=== PATIENT | male | born 1955 | race Caucasian/White ===

== ENCOUNTER → 2017-10-26 | Outpatient (CLI) | payer OTHER ==
[~2017-10-26] MED LIST: MULT-506 PO; NAPR-1231 PO; POLY150C12 PO; PRLSR20 PO
[2017-10-26 09:42] LABS: BASO % 0.4 %; BASO ABS # 0.02 K/uL (0-0.2); EOS % 4.3 %; EOS ABS # 0.22 K/uL (0-0.5); HEMATOCRIT 44.3 % (42-52); HEMOGLOBIN 14.8 g/dL (14.0-18.0); IG# 0.01 K/uL (0.00-0.02); LYMPH % 22.6 %; LYMPH ABS # 1.15 K/uL (1.2-3.4); MEAN CELL VOLUME 87.9 fL (80-100); MEAN CORPUSCULAR HEMOGLOBIN 29.4 pg (25-34); MEAN CORPUSCULAR HGB CONC 33.4 g/dl (32-36); MEAN PLATELET VOLUME 11.3 fL (7.4-10.4); MONO % 8.4 %; MONO ABS # 0.43 K/uL (0.11-0.59); NEUT % 64.1 %; NEUT ABS # 3.26 K/uL (1.4-6.5); PLATELET COUNT 213 K/uL (130-400); RED CELL DISTRIBUTION WIDTH CV 13.7 % (11.5-14.5); RED CELL DISTRIBUTION WIDTH SD 43.9 fL (36.4-46.3); WHITE BLOOD COUNT 5.09 K/uL (4.8-10.8)
[2017-10-26 10:01] LABS: ALT/SGPT 23 U/L (12-78); AST/SGOT 14 U/L (15-37); BLOOD UREA NITROGEN 15 mg/dl (7-18); CARBON DIOXIDE 27 mmol/L (21-32); CHOLESTEROL 142 mg/dl (0-200); GLUCOSE 93 mg/dl (70-99); POTASSIUM 3.8 mmol/L (3.5-5.1); SODIUM 138 mmol/L (136-145)
[2017-10-26 10:05] LABS: LDL CHOLESTEROL CALCULATED 72 mg/dl
== END | disposition home or self-care (01) ==
LOC: C.LAB1850 07:33
DX: M19.90 Unspecified osteoarthritis, unspecified site (principal); E78.5 Hyperlipidemia, unspecified; I10 Essential (primary) hypertension; N40.0 Benign prostatic hyperplasia without lower urinary tract symptoms

== ENCOUNTER → 2018-03-05 | Outpatient (CLI) | payer OTHER ==
--- NOTE | 2018-03-05 10:57 | DIAGNOSTIC IMAGING REPORT ---
RENAL ULTRASOUND HISTORY: N40.1 Benign prostatic hyperplasia with urinary [id number] COMPARISON: None. FINDINGS: Right kidney: 15.7 cm. The increase in size is primarily due to the multiple large cysts. The upper pole cysts demonstrate internal echoes. Dominant cyst measures 7 cm. No hydronephrosis. Left kidney: 11.4 cm. No hydronephrosis. Normal corticomedullary differentiation and cortical thickness. There appears be a small peripelvic cyst. Bladder: Bilateral ureteral jets are identified. Enlarged prostate measuring 5 cm. Nodular echogenic focus within the left posterior bladder wall measuring 9 mm. IMPRESSION: 1. Multiple large cysts within the right kidney. The upper pole cysts demonstrate internal echoes. Follow-up renal CT or renal MRI is recommended to exclude a soft tissue component. 2. A 9 mm nodule within the left posterior bladder wall. Recommend follow cystoscopy to exclude a urothelial lesion. Electronically signed by: Rajiv Lawrence M.D. 03/05/2018 10:56 AM Dictated Date/Time: 03/05/2018 10:51 AM
== END | disposition home or self-care (01) ==
LOC: C.ULTR 10:13
PROVIDERS: ATTEND Urology
DX: N40.1 Benign prostatic hyperplasia with lower urinary tract symptoms (principal); R30.0 Dysuria; N28.1 Cyst of kidney, acquired; N32.9 Bladder disorder, unspecified

== ENCOUNTER → 2018-04-02 | Outpatient (CLI) | payer MEDICARE, OTHER ==
[~2018-04-02] MED LIST changes: +FERR1TAB61 PO; +FLUT0.15 NAE; +METO25TA56 PO; -NAPR-1231 PO; +NAPR-22 PO; +OMEG10007 PO; -POLY150C12 PO; +SUMA25TA12 PO; +TRMCR515 TOP
--- NOTE | 2018-04-02 10:03 | DIAGNOSTIC IMAGING REPORT ---
CHEST 2 VIEWS ROUTINE CLINICAL HISTORY: Preoperative chest COMPARISON STUDY: No previous studies for comparison. FINDINGS: The heart is normal in size. There is mild aortic tortuosity. There is no failure. There is no focal pulmonary consolidation. There are no pleural effusions. There are bilateral shoulder arthroplasties.[ IMPRESSION: No active disease in the chest. Electronically signed by: Lisandro Mendoza M.D. 04/02/2018 10:02 AM Dictated Date/Time: 04/02/2018 10:01 AM
[2018-04-02 11:14] LABS: BASO % 0.4 %; BASO ABS # 0.02 K/uL (0-0.2); EOS % 5.3 %; EOS ABS # 0.24 K/uL (0-0.5); HEMATOCRIT 46.3 % (42-52); HEMOGLOBIN 15.2 g/dL (14.0-18.0); IG# 0.01 K/uL (0.00-0.02); LYMPH % 24.1 %; MEAN CELL VOLUME 88.7 fL (80-100); MEAN CORPUSCULAR HEMOGLOBIN 29.1 pg (25-34); MEAN CORPUSCULAR HGB CONC 32.8 g/dl (32-36); MEAN PLATELET VOLUME 11.2 fL (7.4-10.4); MONO % 7.7 %; MONO ABS # 0.35 K/uL (0.11-0.59); NEUT % 62.3 %; NEUT ABS # 2.85 K/uL (1.4-6.5); PLATELET COUNT 194 K/uL (130-400); RED CELL DISTRIBUTION WIDTH CV 13.5 % (11.5-14.5); RED CELL DISTRIBUTION WIDTH SD 44.3 fL (36.4-46.3); WHITE BLOOD COUNT 4.57 K/uL (4.8-10.8)
[2018-04-02 11:26] LABS: BLOOD UREA NITROGEN 18 mg/dl (7-18); CALCIUM 9.3 mg/dl (8.5-10.1); CARBON DIOXIDE 28 mmol/L (21-32); CREATININE 0.94 mg/dl (0.60-1.40); GLUCOSE 102 mg/dl (70-99); POTASSIUM 5.5 mmol/L (3.5-5.1); SODIUM 140 mmol/L (136-145)
== END | disposition home or self-care (01) ==
LOC: C.CPL 08:49
PROVIDERS: ATTEND Urology
DX: N32.9 Bladder disorder, unspecified (principal); Z01.812 Encounter for preprocedural laboratory examination; Z01.810 Encounter for preprocedural cardiovascular examination

== ENCOUNTER → 2018-04-02 | Outpatient (CLI) | payer OTHER ==
[~2018-04-02] MED LIST changes: +OPTIRAY 320 IV PRN
--- NOTE | 2018-04-02 08:51 | DIAGNOSTIC IMAGING REPORT ---
ABD/PELVIS COMBO CLINICAL HISTORY: 62 years-old Male presenting with N32.9 Lesion of bladder, renal cyst. TECHNIQUE: Multidetector CT of the abdomen and pelvis was performed before and after the administration of intravenous contrast. IV contrast: 117 mL of Optiray 320. A dose lowering technique was used consistent with the principles of ALARA (as low as reasonably achievable). COMPARISON: Ultrasound from 03/05/2018. CT DOSE (mGy.cm): The estimated cumulative dose is 562.24 mGy.cm. FINDINGS: Yeast Pumper topogram: Vasectomy clips noted. Lung bases: Minimal basilar opacities, likely atelectasis. Bilateral fat-containing Bochdalek hernias. Normal heart size. No pericardial or pleural effusion. Liver: Normal morphology. Normal liver density. Well-defined hypodensity in the right hepatic lobe likely hepatic cyst. . Additional similar lesion may be present in the gallbladder fossa. Patent hepatic vasculature. Biliary: No intrahepatic or extrahepatic biliary ductal dilatation. Normal gallbladder. Pancreas: Normal. Spleen: Normal. Adrenal glands: Normal. Kidneys and ureters: Multiple confluent cysts noted in the right kidney. There is residual normal parenchyma anteriorly and posteriorly in the interpolar region though the majority of the remaining renal parenchyma is replaced by the multicystic lesion. Several thin septations are noted with perceptible enhancement. Thin mural calcifications also evident. No solid nodular enhancing components. The multicystic, confluent right renal abnormality appears unencapsulated. The left kidney contains no cysts. No hydronephrosis. No nephrolithiasis. Ureters normal. Bladder: Circumferential bladder wall thickening. Median lobe hypertrophy of the prostate. Allowing for incomplete distention of the bladder and incomplete mixing of excreted contrast, no polypoid lesion is grossly apparent. Pelvic organs: Prostate enlargement likely secondary to benign prostatic hyperplasia. Bowel: Normal appendix. No bowel obstruction. Peritoneal cavity: No free fluid or intraperitoneal gas. Lymph nodes: No enlarged lymph nodes in the abdomen or pelvis. Vasculature: Aorta and IVC patent and normal in caliber. Abdominal wall: Small fat-containing umbilical hernia. Musculoskeletal: Degenerative changes of the spine. IMPRESSION: 1. Findings most suggestive of localized renal cystic disease, which is benign. Less likely differential considerations include a multilocular cystic renal tumor, however, multilocular cystic renal tumors are indistinguishable from multilocular clear cell renal cell carcinoma. Urologic consultation advised. Imaging follow-up is recommended at a minimum. 2. Circumferential bladder wall thickening suggest chronic bladder outlet obstruction in the setting of prostatomegaly. Electronically signed by: Vishnu Carballo M.D. 04/02/2018 8:50 AM Dictated Date/Time: 04/02/2018 8:35 AM
[2018-04-02 09:50] LABS: ALBUMIN 3.7 gm/dl (3.4-5.0); ALKALINE PHOSPHATASE 60 U/L (45-117); ALT/SGPT 26 U/L (12-78); AST/SGOT 18 U/L (15-37); BLOOD UREA NITROGEN 18 mg/dl (7-18); CALCIUM 8.7 mg/dl (8.5-10.1); CARBON DIOXIDE 27 mmol/L (21-32); CREATININE 0.94 mg/dl (0.60-1.40); GLUCOSE 96 mg/dl (70-99); POTASSIUM 4.1 mmol/L (3.5-5.1); SODIUM 139 mmol/L (136-145)
== END | disposition home or self-care (01) ==
LOC: C.CTS 08:04
PROVIDERS: ATTEND Urology
DX: N32.9 Bladder disorder, unspecified (principal)

== ENCOUNTER 2022-06-30 05:17 | Observation (INO) ==
--- NOTE | 2022-05-31 07:25 | Anesthesiology Consultation ---
Date of Service May 31, 2022 Assessment & Plan Chart Review Chart Review: Acceptable Risk for Surgery and Patient NOT seen in Pre Admission Testing History Surgery Operation Date: 06/30/22 08:50 Proposed Procedures p Left Total Knee Arthroplasty - Mnado Schumacher MD Allergies Allergy/AdvReac Type Severity Reaction Status Date / Time diclofenac Allergy Mild Rash Verified 05/30/22 13:18 morphine Allergy Mild DYSURIA Verified 05/30/22 13:18 ciprofloxacin [From Cipro] AdvReac Intermediate Joint Pain Verified 05/30/22 13:18 Medications Home Medications Medication Instructions Recorded Confirmed Last Taken multivitamin with minerals 0.5 tab PO BID ##0 03/14/12 05/30/22 07/07/18 08:00 (Multiple Vitamin-Minerals tablet) omeprazole 20 mg tablet,delayed 20 mg PO QAM PRN Acid Reflux ##0 03/14/12 05/30/22 07/08/18 07:00 release fluticasone propionate 50 2 spray intranasal DAILY PRN Nasal 03/26/18 05/30/22 06/24/18 10:00 mcg/actuation nasal Congestion ##0 spray,suspension (Flonase Allergy Relief) metoprolol tartrate 25 mg tablet 25 mg PO BID #0 tabs 03/26/18 05/30/22 07/08/18 07:00 naproxen 500 mg tablet 500 mg PO BID PRN Pain #0 tabs 03/26/18 05/30/22 07/01/18 08:00 500 mg sumatriptan succinate 25 mg tablet 100 mg PO UD PRN MIGRAINE #0 tabs 03/26/18 05/30/22 Unknown (Imitrex) triamcinolone acetonide 0.1 % 1 applic topical BID PRN Rash 30 03/26/18 05/30/22 1 Week Ago topical cream days #15 grams ~04/09/18 cholecalciferol (vitamin D3) 25 25 mcg PO QAM 05/30/22 05/30/22 Unknown mcg (1,000 unit) tablet (Vitamin D3) finasteride 5 mg tablet 5 mg PO HS 05/30/22 05/30/22 Unknown tamsulosin 0.4 mg capsule 0.4 mg PO QPM 05/30/22 05/30/22 Unknown Past Medical History Medical History Anemia Bilateral primary osteoarthritis of knee BPH (benign prostatic hyperplasia) Cancer BLADDER GERD (gastroesophageal reflux disease) PT IS ON THIS MEDICATION DUE TO HX OF NSAIDS Hypertension Migraine Osteoarthritis Strain of right calf muscle Past Family History Family History Mother Cardiac disorder Osteoarthritis Father Thyroid cancer Other No family history of adverse response to anesthesia Past Surgical History Surgical History History of colonoscopy History of cystoscopy multiple--last 06/2018 @ [place] History of herniorrhaphy RIGHT INGUINAL History of sinus surgery 03/[address] @ [facility] History of total shoulder replacement BILATERAL Hx of vasectomy Social History Smoking Status: Never smoker Hx Alcohol Use: Yes Alcohol type: beer and wine alcohol intake frequency: a few times a month Hx Substance Use: No substance use type: does not use
--- NOTE | 2022-06-14 09:03 | PAT Medication Instructions ---
Medication Instructions Date of Service June 14, 2022 Home Medications Medication Instructions Recorded oxybutynin chloride 5 mg tablet 5 mg PO Q8H PRN bladder spasms #10 06/05/22 tabs phenazopyridine 200 mg tablet 200 mg PO Q8H PRN pain #10 tabs 06/05/22 (Pyridium) multivitamin with minerals (Multiple Vitamin-Minerals tablet) 0.5 tab PO BID omeprazole 20 mg tablet,delayed release 20 mg PO QAM PRN fluticasone propionate 50 mcg/actuation nasal spray,suspension (Flonase Allergy Relief) 2 spray intranasal DAILY PRN metoprolol tartrate 25 mg tablet 25 mg PO BID naproxen 500 mg tablet 500 mg PO BID PRN sumatriptan succinate 25 mg tablet (Imitrex) 100 mg PO UD PRN triamcinolone acetonide 0.1 % topical cream 1 applic topical BID PRN cholecalciferol (vitamin D3) 25 mcg (1,000 unit) tablet (Vitamin D3) 25 mcg PO QAM finasteride 5 mg tablet 5 mg PO HS tamsulosin 0.4 mg capsule 0.4 mg PO QPM oxybutynin chloride 5 mg tablet 5 mg PO Q8H PRN phenazopyridine 200 mg tablet (Pyridium) 200 mg PO Q8H PRN Continue as directed sumatriptan succinate 25 mg tablet (Imitrex) 100 mg PO UD PRN(if needed) phenazopyridine 200 mg tablet (Pyridium) 200 mg PO Q8H PRN(if needed) ASK your surgeon for instructions naproxen 500 mg tablet 500 mg PO BID PRN STOP taking 24 hours before surgery triamcinolone acetonide 0.1 % topical cream 1 applic topical BID PRN DO NOT take the morning of surgery multivitamin with minerals (Multiple Vitamin-Minerals tablet) 0.5 tab PO BID cholecalciferol (vitamin D3) 25 mcg (1,000 unit) tablet (Vitamin D3) 25 mcg PO QAM oxybutynin chloride 5 mg tablet 5 mg PO Q8H PRN Take morning of surgery With a small sip of water, OTHERWISE NOTHING TO EAT OR DRINK AFTER MIDNIGHT: omeprazole 20 mg tablet,delayed release 20 mg PO QAM PRN(if needed) fluticasone propionate 50 mcg/actuation nasal spray,suspension (Flonase Allergy Relief) 2 spray intranasal DAILY PRN(if needed) metoprolol tartrate 25 mg tablet 25 mg PO BID Take evening before surgery multivitamin with minerals (Multiple Vitamin-Minerals tablet) 0.5 tab PO BID metoprolol tartrate 25 mg tablet 25 mg PO BID finasteride 5 mg tablet 5 mg PO HS tamsulosin 0.4 mg capsule 0.4 mg PO QPM oxybutynin chloride 5 mg tablet 5 mg PO Q8H PRN(if needed) Other Notes If you have any questions please call us at [phone] or [phone] or [phone] or [phone]
--- NOTE | 2022-06-19 13:09 | Anesthesiology Consultation ---
Date of Service June 19, 2022 Assessment & Plan (1) Encounter for pre-operative examination: - COVID screening: Per assessment on 06/19: No known COVID-19 positive contacts or current COVID-19 related symptoms. Travel screen negative. Patient vaccinated. At surgeon discretion if preop Covid testing being done. - Outpatient joint assessment: Pt currently scheduled for inpatient pathway. If surgeon requests review for outpatient joint pathway, patient is acceptable candidate for outpatient joint program from anesthesia standpoint pending surgeon's office assessment of pt motivation/strong home support/completion of same day joint program preop requirements. - S/P REZUM (06/05/22) at [facility] No issues noted per post-op anesthesia progress note. - Chart/case reviewed by Dr. Braden 05/31/22- he deemed patient acceptable risk for upcoming surgery. Chart Review Chart Review: Acceptable Risk for Surgery and Patient seen in Pre Admission Testing Consults Requested none Teaching & Discussion Pre-Anesthesia Teaching/Discussion Notes: Instructed NPO after midnight before surgery,except medications with 15 cc of water. Medication instructions provided according to the PAT guidelines. ASA ASA3 Proposed Anesthesia Anesthesia Type: MAC Spinal Regional Regional Laterality: Left Site: Adductor Canal Risk / Benefits Reviewed With: PT / POA / Parent / Guardian, Accepts Plan and Informed Consent Obtained History Surgery Operation Date: 06/30/22 07:00 Proposed Procedures p Left Total Knee Arthroplasty - Mando Schumacher MD Height/Weight Height: 5 ft 10 in Weight: 74.5 kg Allergies Allergy/AdvReac Type Severity Reaction Status Date / Time diclofenac Allergy Mild Rash Verified 06/30/22 05:35 ciprofloxacin [From Cipro] AdvReac Intermediate Joint Pain Verified 06/30/22 05:35 morphine AdvReac Mild Dysuria Verified 06/30/22 05:35 Medications Home Medications Medication Instructions Recorded Confirmed Last Taken multivitamin with minerals 0.5 tab PO BID ##0 03/14/12 06/30/22 06/29/22 12:00 (Multiple Vitamin-Minerals tablet) omeprazole 20 mg tablet,delayed 20 mg PO QAM PRN Acid Reflux ##0 03/14/12 06/30/22 07/08/18 07:00 release fluticasone propionate 50 2 spray intranasal DAILY PRN Nasal 03/26/18 06/30/22 06/29/22 12:00 mcg/actuation nasal Congestion ##0 spray,suspension (Flonase Allergy Relief) metoprolol tartrate 25 mg tablet 25 mg PO BID #0 tabs 03/26/18 06/30/22 06/30/22 04:20 naproxen 500 mg tablet 500 mg PO BID PRN Pain #0 tabs 03/26/18 06/30/22 05/28/22 sumatriptan succinate 25 mg tablet 100 mg PO UD PRN MIGRAINE #0 tabs 03/26/18 06/30/22 06/24/22 (Imitrex) triamcinolone acetonide 0.1 % 1 applic topical BID PRN Rash 30 03/26/18 06/13/22 1 Week Ago topical cream days #15 grams ~04/09/18 cholecalciferol (vitamin D3) 25 25 mcg PO QAM 05/30/22 06/30/22 06/29/22 09:00 mcg (1,000 unit) tablet (Vitamin D3) finasteride 5 mg tablet 5 mg PO HS 05/30/22 06/30/22 06/29/22 20:00 tamsulosin 0.4 mg capsule 0.4 mg PO QPM 05/30/22 06/30/22 06/29/22 20:00 oxybutynin chloride 5 mg tablet 5 mg PO Q8H PRN bladder spasms #10 06/05/22 06/13/22 Unknown tabs phenazopyridine 200 mg tablet 200 mg PO Q8H PRN pain #10 tabs 06/05/22 06/13/22 Unknown (Pyridium) Wheeled Walker #1 ea 06/19/22 06/19/22 Unknown Active Medications Generic Name Dose Route Start Last Admin Trade Name Gualbertoq PRN Reason Stop Dose Admin Acetaminophen 1,000 mg 06/30/22 06:00 06/30/22 05:50 Acetaminophen 500 Mg Tab PO 06/30/22 18:00 1,000 mg PREOP CRYSTAL Administration Famotidine 20 mg 06/30/22 06:00 06/30/22 05:51 Famotidine 20 Mg Tab PO 06/30/22 18:00 20 mg PREOP CRYSTAL Administration Lactated Ringer's 1,000 mls @ 60 mls/hr 06/30/22 06:00 06/30/22 05:52 Lr IV 06/30/22 22:39 60 mls/hr .[id number] CRYSTAL Administration Metoclopramide HCl 10 mg 06/30/22 06:00 06/30/22 05:51 Metoclopramide Hcl 10 Mg Tablet PO 06/30/22 18:00 10 mg PREOP CRYSTAL Administration Scopolamine 1 mg 06/30/22 06:00 06/30/22 05:51 Scopolamine 1 Mg Tdsy TD 06/30/22 18:00 1 mg PREOP CRYSTAL Administration NPO Date Last Intake of Fluids: 06/30/22 Time Last Intake of Fluids: 05:00 Date Last Intake of Solids: 06/29/22 Time Last Intake of Solids: 19:00 Past Medical History Medical History Anemia Bilateral primary osteoarthritis of knee BPH (benign prostatic hyperplasia) Cancer Bladder (no chemo/xrt) GERD (gastroesophageal reflux disease) Occasional Hypertension Migraine Osteoarthritis Exercise / Class Metabolic Activity II 4-5 Yardwork/Stairs/Walk up hill (one FS (No CP, no SOB)) Past Family History Family History Mother Cardiac disorder Osteoarthritis Father Thyroid cancer Other No family history of adverse response to anesthesia Past Surgical History Surgical History History of colonoscopy History of cystoscopy multiple--last 06/2018 @ [place] History of herniorrhaphy RIGHT INGUINAL History of sinus surgery 03/2022 @ [facility] History of surgery REZU (06/05/22) at [facility]. No issues noted per post-op anesthesia progress note. History of total shoulder replacement BILATERAL Hx of vasectomy Past Anesthesia History No Hx of Anesthesia Complications and Difficult Airway History of PONV No Hx of PONV and No Hx of Motion Sickness Social History Smoking Status: Never smoker Do You Dip or Chew Tobacco: No Hx Alcohol Use: Yes Alcohol type: beer and wine alcohol intake frequency: a few times a month Hx Substance Use: No substance use type: does not use Review of Systems Patient denies chest pain, shortness of breath, dyspnea on exertion, fever, chills, cough, wheezing, palpitations. Physical Exam Vital Signs Last Vital Signs Temp 36.9 C 06/30/22 05:40 Pulse 57 L 06/30/22 05:40 Resp 18 06/30/22 05:40 BP 136/78 06/30/22 05:40 Pulse Ox 99 06/30/22 05:40 O2 Del Method 06/30/22 05:40 VITALS BP 124/73 P 57 TEMP 98.2 SP02 97%RA RESP 18 PHYSICAL Full cervical extension range of motion. Full TMJ range of motion. TMD 3.5 finger breaths Mallampati Score 2 Dentition: intact Lungs: clear throughout to auscultation Cardiac: regular rate and rhythm, no murmurs noted Spine: normal Carotid arteries: negative bruit Extremities: no edema Constitutional no acute distress and not cachectic ENMT Mouth: no dentition abnormality Thyromental Distance: > or= 3.5 Finger Breadths Mallampati Class: II Neck normal visual inspection, trachea midline and + facial hair; neck extension not limited Respiratory normal respiratory effort Auscultation: lungs clear to auscultation bilaterally Cardiovascular Rate/Rhythm: regular rate and regular rhythm Heart Sounds: no murmur Vessels: no carotid bruit Musculoskeletal Spine: normal cervical ROM Extremities: extremities normal to inspection; full ROM of extremities Neurologic moves all extremities Motor/Sensory: no sensory deficit Psychiatric Orientation: alert and oriented x 3 Lab Results Anesthesia Preop Results Results Anesthesia Widget: WBC 4.66 K/ul (4.8-10.8) L 06/19/22 Hgb 14.4 g/dl (14.0-18.0) 06/19/22 Hct 43.2 % (40.1-51.0) 06/19/22 Plt 215 K/uL (130-400) 06/19/22 Na 139 mmol/L (136-145) 05/18/22 K 4.1 mmol/L (3.5-5.1) 05/18/22 Cl 107 mmol/L (98-107) 05/18/22 CO2 26 mmol/L (21-32) 05/18/22 BUN 22 mg/dl (6-23) 05/18/22 Creat 0.90 mg/dl (0.6-1.4) 05/18/22 Glucose Level 91 mg/dl (70-99(Fasting)) 05/18/22 PT 11.0 Seconds (9.0-12.0) 06/19/22 PTT 28.8 Seconds (21.0-31.0) 06/19/22 INR 1.0 (0.9-1.1) 06/19/22 Urine Color Yellow 05/18/22 Urine Appearance Clear (Clear) 05/18/22 Urine pH 6.0 (4.5-7.5) 05/18/22 Urine Specific Frost 1.016 (1.000-1.030) 05/18/22 Urine Protein Negative (Negative) 05/18/22 Urine Glucose (UA) Negative (Negative) 05/18/22 Urine Ketones Negative (Negative) 05/18/22 Urine Blood Negative (Negative) 05/18/22 Urine Nitrite Negative (Negative) 05/18/22 Urine Bilirubin Negative (Negative) 05/18/22 Urine Urobilinogen Negative (Negative) 05/18/22 Urine Leukocyte Esterase Negative (Negative) 05/18/22 SARS-CoV-2, RNA, NAAT NEGATIVE (NEGATIVE) 06/30/22 Blood Type A Positive 06/19/22 Antibody Screen NEGATIVE 06/19/22 Testing Electrocardiogram Date: 05/18/22 SB at 54bpm. Minimal voltage criteria for LVH, may be normal variant. NS STA. 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 Chest X-Ray Date: 05/18/22 FINDINGS: Bilateral shoulder arthroplasties are incidentally noted. Lung volumes are normal. Lungs are clear. There is no pneumothorax or pleural effusion. Cardiac size is normal. Mediastinal contours are normal. There is no evidence for pulmonary edema. IMPRESSION: No acute cardiopulmonary findings. COVID-19 Risk Screen Screening Information COVID-19 Screen Date: 06/19/22 Exposure 21 Days Family/Household +COVID Last 21 Days: No Exposure 10 Days Any COVID Exposure Last 10 Days: No Symptoms Last 10 Days Experienced COVID Sx Last 10 Days: No + COVID 0-90 Days COVID + in Last 0-90 Days: No
[2022-06-30] MEDS ORDERED: FAMOTIDINE 20 MG TAB PO SCH (06:00)
[2022-06-30] MEDS ORDERED: ACETAMINOPHEN 500 MG TAB PO SCH (06:00)
[2022-06-30] MEDS ORDERED: Scopolamine 1 MG TDSY TD SCH (06:00)
[2022-06-30] MEDS ORDERED: LR 60ML/HR IV SCH (06:00)
[2022-06-30] MEDS ORDERED: ceFAZolin 2000MG 2,000 MG/15 ML SYR IV SCH (06:00)
[2022-06-30] MEDS ORDERED: TRANEXAMIC ACID 1,000 MG **IV Intra-op IV SCH (06:00)
[2022-06-30] MEDS ORDERED: METOCLOPRAMIDE HCL 10 MG TABLET PO SCH (06:00)
[2022-06-30] MEDS ORDERED: CeleBREX 200 MG CAP PO SCH (06:00)
[2022-06-30] MEDS ORDERED: EPINEPHrine INJ 1 MG/ML AMP ONE (06:15)
[2022-06-30] MEDS ORDERED: ROPIVACAINE 0.5% 5 MG/ML 30 ML VIAL ONE (06:15)
[2022-06-30] MEDS ORDERED: BUPIVACAINE 0.5 % 5 MG/1 ML PF 10ML VIAL ONE (06:15)
[2022-06-30] MEDS ORDERED: LIDOCAINE 2% MPF LOCAL 5 ML VIAL INFIL ONE (06:45)
[2022-06-30] MEDS ORDERED: MIDAZOLAM HCL 1 MG/ML 2ML VIAL ONE ×2 (06:45→06:53)
[2022-06-30] MEDS ORDERED: CeleBREX 200 MG CAP ONE (06:45)
[2022-06-30] MEDS ORDERED: PROPOFOL IV EMULSION 10 MG/ML 20 ML VIAL IV ONE (06:45)
[2022-06-30] MEDS ORDERED: Nursing to Pharmacy Communication SCH (06:45)
--- NOTE | 2022-06-30 06:55 | History & Physical Bridge Note ---
Date of Service June 30, 2022 History & Physical Bridge Note I have examined the patient, reviewed the History & Physical and in the interval since the performance of the History & Physical I have noted the following changes of clinical significance: no changes noted
[2022-06-30] MEDS ORDERED: ONDANSETRON INJ 2 MG/ML 2 ML VIAL ONE (07:20)
[2022-06-30] MEDS ORDERED: ePHEDrine sulfate 50 MG/ML AMP ONE (07:30)
[2022-06-30] MEDS: BUPIVACAINE LIPOSOME/PF 266 MG, BUPIVACAINE/EPINEPHRINE 50 ML, SODIUM CHLORIDE 0.9% 30 ... INFIL SCH ×2 (07:40→09:18)
[2022-06-30] MEDS: BUPIVACAINE LIPOSOME 1.3% 266 MG/20 ML VIAL ONE ×2 (07:40)
[2022-06-30] MEDS: EPINEPHrine INJ 1 MG/ML AMP ONE ×2 (07:40→07:41)
[2022-06-30] MEDS: SODIUM CHLORIDE 0.9% PF 50 ML VIAL ONE ×2 (07:40→07:41)
[2022-06-30] MEDS: BUPIVACAINE 0.5 % 5 MG/1 ML MPF 30ML VIAL ONE ×2 (07:40)
[2022-06-30] MEDS ORDERED: PROMETHAZINE HCL 12.5 MG in SODIUM CHLORIDE 0.9% 50 ML IV PRN (08:12)
[2022-06-30] MEDS ORDERED: ONDANSETRON INJ 2 MG/ML 2 ML VIAL IV PRN ×2 (08:12→10:38)
[2022-06-30] MEDS ORDERED: FLUMAZENIL 0.1 MG/1 ML 10 ML VIAL IV PRN (08:12)
[2022-06-30] MEDS ORDERED: ATROPINE SULFATE 0.1 MG/ML 10ML SYR IV PRN (08:12)
[2022-06-30] MEDS ORDERED: HYDROmorphone INJ 1 MG/ML SYRINGE IV PRN (08:12)
[2022-06-30] MEDS ORDERED: ePHEDrine sulfate 50 MG/ML AMP IV PRN (08:12)
[2022-06-30] MEDS ORDERED: fentaNYL citrate 100 MCG/2 ML VIAL IV PRN (08:12)
[2022-06-30] MEDS ORDERED: NALOXONE HCL 0.4 MG/1 ML VIAL/CARP IV PRN ×2 (08:12→10:38)
--- NOTE | 2022-06-30 08:52 | Operative Report ---
PG Post Operative Report Pre & Post Diagnosis Operation Date: 06/30/22 07:00 Pre-Op Diagnosis: Left Knee Advanced Degenerative Joint Disease Post-Op Diagnosis: Left Knee Advanced Degenerative Joint Disease I identified the patient and participated in the time-out.: Yes Procedure Operation Date: 06/30/22 07:00 Actual Procedures p Left Total Knee Arthroplasty(Left) - Mando Schumacher MD Surgeon Mando Schumacher MD Mannequin Coloring Artist Jamie Finley PA-C Estimated Blood Loss 50 Findings Consistent with Post-Op Diagnosis Operative findings were advanced left knee tricompartment DJD. Extensive grade 4 [id number]-[id number] disease in all 3 compartments with chronic ACL deficiency. He had osteophytes in all 3 compartments. He had a fixed varus deformity to his knee and about a 10 degree flexion contracture. 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 Is been through extensive conservative treatments became less successful over time. Pain is become more debilitating he elected proceed with total knee arthroplasty. Description of Procedure Operative implants consist of: 1 Biomet Vanguard size 67.5 left posterior stabilized femoral component. 2. Biomet size 79 tibial tray. 3. 10 mm posterior stabilized polyethylene insert. 4. 34 x 8 and half all Paller patella. The patient was taken to the operating room, identified, placed on the operating table supine position protectors were properly padded. IV antibiotics tried by anesthesia team. Spinal anesthetic of the implemented holding area. A left thigh tent was then placed. We did not put a Briseno catheter in due to his a recent urological procedure. Left lower extremities then prepped and draped in usual sterile fashion. The left leg was elevated exsanguinated with use of an Esmarch and the tourniquet was set at 300 mmHg. An anterior approach left knee was then performed through a longitudinal incision centered over the patella. Sharp dissection was got through subcutaneous is down the extensor mechanism. A medial parapatellar arthrotomy incision was made. Some subperiosteal dissection was carried out medially. The fat pad was resected from Neath patella tendon. Lateral patellofemoral ligament was released. Patella subluxated laterally and the knee was flexed. The osteophytes taken off distal femur. The ACL was absent. The PCL was released from distal femur the tibia subluxated anteriorly. The external tibial alignment jig was then placed in the interface the tibia and adjusted 16 mm medially. Proximal tibial cut was made essentially flush with the most deficient aspect of the posterior medial tibial plateau. Some osteophytes taken off medially. Tibia sized to a size 79. Attention drawn the femur. The distal femur during the sharp drop with intramedullary canal was suction. A left 6 degree valgus cutting guide was placed. Distal femoral cutting block was pinned in place but distal femoral cut was made to take an additional 3 mm bone off distal femur. Femur was then sized to a size 67.5. Sized exactly to a 67.5. The AP cutting block was pinned parallel to the epicondylar axis which was 5 degrees of external rotation. Anterior cut, anterior chamfer, posterior cut, posterior chamfer cuts were made. The box cutting guide was placed in just slight lateral and the box cut was made. The knee was flexed. The remnants of the medial and lateral menisci were excised with the osteophyte taken off the posterior aspect the femur. Trial femoral component was placed. Tibial tray was pinned in maximum external rotation and the drill and stem punch were used to create defect in proximal tibia for the tibial tray. Knee was then trialed and 10 mm insert fit most appropriately. Attention drawn the patella. The patella was cleaned of all soft tissues. The patella thickness measured and 23 mm in thickness was cut down to 14. Was sized to a size 34 patella. The lug holes were drilled for 34 patella. The lateral osteophyte was removed. Patella button was placed. Knee was taken through range of motion patella tracked nicely with no thumbs test. Attention drawn to placing permanent components. All trial components were removed. Bone plug was placed into distal femur limit blood loss. Double batch of Palacos G cement was mixed. Biomet Vanguard size 67.5 left posterior stabilized femoral component, size 79 tibial tray, a 10 mm posterior stabilized polyethylene insert, and a 34 x 8 All Paller patella then cemented in place. Knee was brought out into full extension total cement hardened. Final cement check was then performed. The pericapsular tissues were injected with total of 100 cc of combination of 20 cc of Exparel, 30 cc normal saline, 50 cc of quarter percent Marcaine with epinephrine. Patient did receive 1 g tranexamic acid. The tourniquet was let down for final turn time of 57 minutes. Hemostasis reduced electrocautery. Extensor mechanism closed with combination 1 PDS suture #1 Vicryl suture in [id number] fashion. Extensor mechanism checked found be intact the subcutaneous tissue then closed with 2 Dexon suture in a buried interrupted fashion skin was closed skin katherine. Leg was then cleaned and dried a sterile dressing was Xeroform, 4 x 4's, sterile cast padding, Gary bandage were applied. Patient then transferred to the recovery room in stable condition. Patient tolerated procedure well and there were no complications. Jamie Finley, my physician talent acquisition assistant, was present for the entire procedure. His assistance was essential and required for appropriate patient positioning, prepping and draping, surgical exposure, performing the technical details of the operation, placement the implants, closure of the wound, and placement of the sterile bandage. I attest to the content of the Intraoperative Record and any orders documented therein. Any exceptions are noted below.
--- NOTE | 2022-06-30 09:15 | XRay Report ---
XR knee LT 1 or 2V routine CLINICAL HISTORY: Surgical Post Op TECHNIQUE: 2 views of the left knee were obtained. Comparison: Comparison is made to knee radiographs 06/19/2022 FINDINGS: Patient is status post total knee arthroplasty with expected postsurgical changes including soft tiss ue swelling and subcutaneous emphysema. No periarticular lucency or hardware fracture is seen. IMPRESSION: Expected postoperative appearance status post placement of total knee arthroplasty. ACT 112: Negative or not required by law. Electronically signed by: Carlos Yancey M.D. 06/30/2022 9:14 AM
--- NOTE | 2022-06-30 09:39 | Anesthesiology Progress Note ---
Date of Service June 30, 2022 Anesthesia Post Procedure Vital Signs Vital Signs: Temp Pulse Pulse Resp BP Pulse Ox O2 Del Method 06/30/22 09:30 58 L 13 109/64 97 Room Air 06/30/22 09:20 60 12 107/66 97 Room Air 06/30/22 09:10 60 19 104/63 97 Oxymask 06/30/22 09:00 64 12 106/62 99 Oxymask 06/30/22 08:50 36.1 C L 65 12 104/60 97 Oxymask 06/30/22 05:40 36.9 C 57 L 18 136/78 99 Room Air O2 Flow Rate 06/30/22 09:30 06/30/22 09:20 06/30/22 09:10 2 06/30/22 09:00 5 06/30/22 08:50 9 06/30/22 05:40 Transfer of Care Handoff Completed per policy Notes Mental Status: alert / awake / arousable Patient Amnestic to Procedure: Yes Nausea / Vomiting: adequately controlled Pain: adequately controlled Airway Patency, RR, SpO2: stable & adequate BP & HR: stable & adequate Hydration State: stable & adequate Neuraxial Anesthesia: was administered and sensory block is resolving Anesthetic Complications: no major complications apparent
[2022-06-30] MEDS ORDERED: HYDROmorphone INJ 0.5 MG/0.5 ML SYR IV PRN (10:38)
[2022-06-30] MEDS ORDERED: SUMAtriptan succinate 100 MG TAB PO PRN (10:38)
[2022-06-30] MEDS ORDERED: OXYBUTYNIN CHLORIDE 5 MG TAB PO PRN (10:38)
[2022-06-30] MEDS ORDERED: PHENAZOPYRIDINE HCL 200 MG TAB PO PRN (10:38)
[2022-06-30] MEDS ORDERED: MAGNESIUM HYDROXIDE SUSP 30 ML UDC PO PRN (10:38)
[2022-06-30] MEDS ORDERED: bisacodyL 10 MG SUPP PR PRN (10:38)
[2022-06-30] MEDS ORDERED: FLUTICASONE PROPIONATE NA SPR 16 GM BTL NAE PRN (10:38)
[2022-06-30] MEDS ORDERED: TRIAMCINOLONE ACET 0.1% CR 15 GM TUBE TOP PRN (10:38)
[2022-06-30] MEDS ORDERED: METOCLOPRAMIDE HCL INJ 5 MG/ML 2 ML VIAL IV PRN (10:38)
[2022-06-30] MEDS ORDERED: ALUMINUM/MAGNESIUM SUSP 30 ML UDC PO PRN (10:38)
[2022-06-30] MEDS: ALLERGY Noted to ORDERED Medication SCH ×4 (10:42→16:41)
[2022-06-30] MEDS: SODIUM CHLORIDE 0.9% 1000ML 1,000 ML IV SCH ×2 (11:51→23:03)
[2022-06-30] MEDS: METOPROLOL TARTRATE 25 MG TAB PO SCH ×2 (11:52→20:14)
[2022-06-30] MEDS: ASPIRIN 81 MG ECTAB PO SCH ×2 (12:03→20:14)
[2022-06-30] MEDS: KETOROLAC TROMETHAMINE 15 MG/ML VIAL IV SCH ×3 (12:03→22:41)
[2022-06-30] MEDS: MULTIVITAMIN TAB PO SCH (12:04)
[2022-06-30] MEDS: DOCUSATE SODIUM 100 MG CAP PO SCH ×2 (12:04→20:13)
[2022-06-30] MEDS: ACETAMINOPHEN 500 MG TAB PO SCH ×2 (14:36→22:41)
[2022-06-30] MEDS: ceFAZolin 1000MG 1,000 MG/7.5 ML SYR IV SCH ×2 (14:36→22:42)
[2022-06-30] MEDS ORDERED: TRANEXAMIC ACID / 0.7% NACL 1,000 MG/100 ML BAG IV SCH (14:45)
[2022-06-30] MEDS: Scopolamine CHECK PATCH PLACEMENT SCH (16:41)
[2022-06-30] MEDS: ASCORBIC ACID 500 MG TAB PO SCH (16:42)
[2022-06-30] MEDS: CEROVITE ADV FORMULA TAB PO SCH (20:13)
[2022-06-30] MEDS ORDERED: TAMSULOSIN HCL 0.4 MG CAP PO SCH (21:00)
[2022-06-30] MEDS ORDERED: SENNA 8.6 MG TAB PO SCH (21:00)
[2022-06-30] MEDS ORDERED: FINASTERIDE 5 MG TAB PO SCH (21:00)
[2022-06-30] MEDS: oxyCODONE HCL IR 5 MG TAB (IMMEDIATE RELEASE) PO PRN (22:42)
[2022-07-01] MEDS: Scopolamine CHECK PATCH PLACEMENT SCH ×2 (01:30→08:34)
[2022-07-01] MEDS: ACETAMINOPHEN 500 MG TAB PO SCH (05:09)
[2022-07-01] MEDS: KETOROLAC TROMETHAMINE 15 MG/ML VIAL IV SCH ×2 (05:09→10:35)
[2022-07-01 05:58] LABS: Hematocrit (blood only) 32.4 % (40.1-51.0); Hemoglobin 10.8 g/dl (14.0-18.0); Mean Corpuscular Hemoglobin 29.6 pg (25.0-34.0); Mean Corpuscular Hgb Conc 33.3 g/dL (32.0-36.0); Mean Corpuscular Volume 88.8 fL (80.0-100.0); Mean Platelet Volume 10.1 fL (9.4-12.4); Platelet Count 148 K/uL (130-400); RDW Coefficient of Variation 12.6 % (11.5-14.5); RDW Standard Deviation 41.1 fL (36.4-46.3); Red Blood Count 3.65 M/uL (4.63-6.08); White Blood Count 4.69 K/ul (4.8-10.8)
[2022-07-01 06:18] LABS: BUN Creatinine Ratio 25.6 (10-20); Calcium 8.1 mg/dl (8.5-10.1); Creatinine Clr Calc Pharmacy 83.7 ml/min; Est GFR (African American) 102.5 ml/min; Est GFR (Non-African American) 88.5 ml/min; Potassium 4.3 mmol/L (3.5-5.1)
[2022-07-01] MEDS ORDERED: dexAMETHasone 10 MG in SYRINGE 0 ML IV SCH (08:00)
[2022-07-01] MEDS: ASCORBIC ACID 500 MG TAB PO SCH (08:33)
[2022-07-01] MEDS: METOPROLOL TARTRATE 25 MG TAB PO SCH (08:33)
[2022-07-01] MEDS: DOCUSATE SODIUM 100 MG CAP PO SCH (08:33)
[2022-07-01] MEDS: CEROVITE ADV FORMULA TAB PO SCH (08:33)
[2022-07-01] MEDS: MULTIVITAMIN TAB PO SCH (08:33)
[2022-07-01] MEDS: ASPIRIN 81 MG ECTAB PO SCH (08:33)
[2022-07-01] MEDS: oxyCODONE HCL IR 5 MG TAB (IMMEDIATE RELEASE) PO PRN (08:59)
[2022-07-01] MEDS ORDERED: CHOLECALCIFEROL 1,000 UNITS 25 MCG TAB PO SCH (09:00)
[2022-07-01] MEDS ORDERED: PANTOprazole 40 MG TAB PO SCH (09:00)
--- NOTE | 2022-07-01 10:18 | Progress Notes ---
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 He is doing pretty well. Just describes a little bit of quad soreness mostly. No chest pa in or shortness of breath. Not feeling dizzy or lightheaded. Hoping to go home. OBJECTIVE: VITAL SIGNS: Temperature 36.9. Vital signs stable. PHYSICAL EXAMINATION: GENERAL: Shows a pleasant, healthy appearing middle-aged male. He is sitting up in his bedside alejandra r, looks comfortable. LUNGS: Clear to auscultation. HEART: Regular rate and rhythm. ABDOMEN: Soft, nontender, nondistended. EXTREMITIES: Grossly neurovascularly intact except as follows. Examination of the left leg reveals the leg to be well aligned. Dressing is clean, dry, and intact. He can do a straight leg raise with about a 10-degree lag. He can dorsiflex and plantarflex his carolynn t appropriately. He is neurologically intact. LABORATORY DATA: Hemoglobin 10.8, hematocrit 32.4. Electrolytes are stable. ASSESSMENT: A 67-year-old gentleman postop day 1 from a left knee replacement, doing well. His pain is controlled. He is neurologically intact. PLAN: 1. DVT prophylaxis to include thigh-high TEDs, SCDs, and aspirin twice a day. 2. PT/OT, weightbear as tolerated. Left total knee protocol. 3. Pain control, doing okay with current pain regimen. 4. Disposition: Plan to discharge to home with some home health likely later today if he does okay in therapy. Job ID: [id number]
--- NOTE | 2022-07-04 06:42 | Discharge Summary ---
Date of Service July 04, 2022 Discharge Data Procedures Performed Operation Date: 06/30/22 07:00 Actual Procedures p Left Total Knee Arthroplasty(Left) - Mando Schumacher MD Hospital Course (1) Status post total left knee replacement: This is a 67 year old patient admitted on 06/30/22 and underwent total knee arthroplasty. He tolerated the procedure well and there were no complications. T ransferred to the PACU post op and later to the orthopedic floor for further care. He was given ancef for antibiotic prophylaxis. He was also given LOCO stockings, SCDs, and aspirin for DVT prophylaxis. Hemoglobin, hematocrit, and vital signs were monitored during his hospital stay and remained stable. Did not require any blood transfusions. There were no complications during his hospital stay. By post op day #1 the patient was tolerating a regular diet, pain was reasonably controlled with oral pain medicine, and he was participating in physical therapy. On post op day #1 the patient was discharged home and set up with home health care. He was given printed discharge instructions including prescriptions for extra strength tylenol, aspirin, ketorolac, zofran, senokot, and oxycodone. Continue physical therapy, weight bearing as tolerated. Continue LOCO stockings. Follow up approximately 2 weeks post op or sooner if there are problems or concerns. Coding Level of Care Code None Diagnoses Status post total left knee replacement Z96.652
== END 2022-07-01 12:40 | disposition home health service (06) ==
LOC: 3E 05:17 → ASU 05:17